=== PATIENT | male | born 1950 | race Hispanic/Latino ===

== ENCOUNTER 2021-08-15 14:27 | Inpatient (IN) | payer MEDICARE ==
[~2021-08-15] VITALS: Ht 165.1 cm; Wt 102.7 kg
[2021-08-15 14:57] VITALS: BP 109/61
[2021-08-15] MEDS ORDERED: NITROGLYCERIN 1GM OINT 1 INCH/1GM TD ONE (15:00)
[2021-08-15 15:05] LABS: BASOPHILS % (AUTO) 1.1 % (0.0-5.0); HEMATOCRIT 44.5 % (42-54); LYMPHOCYTES % (AUTO) 22.6 % (21.0-51.0); MEAN CORPUSCULAR HEMOGLOBIN 30.5 pg (27.0-33.0); MEAN CORPUSCULAR HGB CONC 34.4 g/dL (32.0-36.0); MEAN CORPUSCULAR VOLUME 88.8 fL (79-99); MONOCYTES % (AUTO) 5.3 % (3.0-13.0); NEUTROPHILS % (AUTO) 68.6 % (40.0-77.0); PLATELET COUNT (AUTO) 150 K/uL (130-400); RED BLOOD CELL COUNT(AUTO) 5.01 MIL/uL (4.50-6.20); RED CELL DISTRIBUTION WIDTH 13.4 % (11.0-15.5); WHITE BLOOD COUNT (AUTO) 8.5 K/uL (4.8-10.8)
[2021-08-15 15:17] LABS: INR 1.03 (0.85-1.15); POTASSIUM 3.9 mmol/L (3.5-5.1); PROTHROMBIN TIME 11.2 SEC (9.6-11.6)
[2021-08-15 15:18] LABS: PARTIAL THROMBOPLASTIN TIME 25.5 SEC (26.3-35.5)
[2021-08-15 15:23] LABS: ALBUMIN 3.5 g/dL (3.5-5.0); MAGNESIUM 1.8 mg/dL (1.80-2.40)
[2021-08-15 15:26] LABS: B-TYPE NATRIURETIC PEPTIDE 58 pg/mL (0-100)
[2021-08-15] MEDS ORDERED: AMINOCAPROIC ACID 5,000MG VIAL IV ONE (15:46)
[2021-08-15] MEDS ORDERED: MANNITOL 25% 50ML VIAL IV ONE (15:46)
[2021-08-15] MEDS ORDERED: ALBUMIN (HUMAN) 25% 50 ML IV ONE (15:46)
[2021-08-15] MEDS ORDERED: HEPARIN 10,000 UNIT/10ML (1,000 UNIT/ML) VIAL IV ONE (15:46)
[2021-08-15] MEDS ORDERED: SODIUM BICARB 8.4% 50ML SYRINGE IVP ONE (15:46)
[2021-08-15] MEDS ORDERED: CACL 1GM SYG IVP ONE (15:46)
[2021-08-15] MEDS ORDERED: NOREPINEPHRINE BITARTRATE 1 MG/1 ML ML IV ONE (15:46)
[2021-08-15 16:14] VITALS: BP 105/65
[2021-08-15] MEDS ORDERED: POTASSIUM CHLORIDE 20MEQ/100ML 100 ML IV PRN ×2 (16:30)
[2021-08-15] MEDS ORDERED: GLUCAGON 1MG KIT 1 MG ML IM PRN (16:30)
[2021-08-15] MEDS ORDERED: LIDOCAINE HCL-MPF 1% 2ML VIAL IV PRN ×2 (16:30)
[2021-08-15] MEDS ORDERED: DEXTROSE 50%-WATER 50 ML DISP.SYRIN IV PRN (16:30)
[2021-08-15] MEDS ORDERED: MAGNESIUM 2GM PREMIX 50ML 50 ML IV PRN (16:30)
[2021-08-15] MEDS ORDERED: POTASSIUM CHLORIDE 10% ELIXIR 20 MEQ/15 ML UDCUP PO PRN (16:30)
[2021-08-15] MEDS ORDERED: ONDANSETRON 4MG INJ IVP PRN (16:30)
[2021-08-15] MEDS ORDERED: ACETAMINOPHEN 325 MG/10.15ML UDCUP PO PRN (16:30)
[2021-08-15 16:55] LABS: HEMOGLOBIN A1C 11.7 % (4.0-6.0)
[2021-08-15] MEDS: NITROGLYCERIN 1GM OINT 1 INCH/1GM TD SCH (17:00)
[2021-08-15] MEDS ORDERED: MORPHINE 2 MG SYG IVP PRN (17:00)
[2021-08-15 17:05] LABS: THYROID STIMULATING HORMONE 2.69 uIU/mL (0.36-3.74)
[2021-08-15] MEDS: PANTOPRAZOLE 40 MG/VIAL IVP SCH (17:10)
[2021-08-15] MEDS: 0.9%NACL 1000ML 1,000 ML IV SCH (17:10)
[2021-08-15] MEDS ORDERED: ACETAMINOPHEN 325 MG TAB PO PRN (17:30)
[2021-08-15 17:40] VITALS: BP 115/65
[2021-08-15] MEDS: INSULIN HUMULIN R 100 UNIT/ML 3ML SQ SCH ×2 (18:00→23:44)
[2021-08-15 18:50] VITALS: BP 122/81
[2021-08-15] MEDS ORDERED: KETOROLAC 15MG/ML VIAL (15MG/ML) ONE (19:57)
[2021-08-15 20:00] VITALS: BP 115/70
[2021-08-15] MEDS ORDERED: TRAMADOL HCL 50 MG TABLET PO PRN (20:00)
[2021-08-15] MEDS ORDERED: KETOROLAC 15MG/ML VIAL (15MG/ML) IV SCH (20:00)
[2021-08-15] MEDS: ENOXAPARIN SODIUM 100 MG/1 ML SQ SCH (20:08)
[2021-08-15] MEDS: ATORVASTATIN 40 MG TABLET PO SCH (20:08)
[2021-08-15] MEDS ORDERED: SIMV-46 PO (20:57)
[2021-08-15] MEDS ORDERED: DAPA1TAB3 PO (20:57)
[2021-08-15] MEDS ORDERED: METO-391 PO (20:57)
[2021-08-15] MEDS ORDERED: LEVO150T11 PO (20:57)
[2021-08-15 23:59] VITALS: BP 102/56
[2021-08-16] VITALS (9 sets, daily range): BP systolic 101–135; BP diastolic 61–78
[2021-08-16] MEDS: NITROGLYCERIN 1GM OINT 1 INCH/1GM TD SCH ×4 (01:06→20:48)
[2021-08-16 02:38] LABS: HEMATOCRIT 41.6 % (42-54); MEAN CORPUSCULAR HEMOGLOBIN 30.1 pg (27.0-33.0); MEAN CORPUSCULAR HGB CONC 33.7 g/dL (32.0-36.0); MEAN CORPUSCULAR VOLUME 89.5 fL (79-99); RED BLOOD CELL COUNT(AUTO) 4.65 MIL/uL (4.50-6.20); RED CELL DISTRIBUTION WIDTH 13.4 % (11.0-15.5); WHITE BLOOD COUNT (AUTO) 9.7 K/uL (4.8-10.8)
[2021-08-16 02:57] LABS: POTASSIUM 4.2 mmol/L (3.5-5.1)
[2021-08-16] MEDS ORDERED: ASPIRIN 81MG CHEW TAB PO STA (03:40)
[2021-08-16] MEDS ORDERED: ASPIRIN 81MG CHEW TAB ONE (03:57)
[2021-08-16] MEDS: ASPIRIN 81 MG EC TAB PO SCH (04:01)
[2021-08-16] MEDS: 0.9%NACL 1000ML 1,000 ML IV SCH ×2 (04:05→17:16)
[2021-08-16] MEDS: MORPHINE 4 MG SYG IV PRN ×2 (05:18→20:47)
[2021-08-16] MEDS: INSULIN HUMULIN R 100 UNIT/ML 3ML SQ SCH ×3 (05:59→18:00)
[2021-08-16] MEDS: INSULIN GLARGINE 100 UNITS/ML 10 ML VIAL SQ SCH ×2 (08:00→18:15)
[2021-08-16] MEDS: PANTOPRAZOLE 40 MG/VIAL IVP SCH (09:23)
[2021-08-16] MEDS ORDERED: NITROGLYCERIN 0.4 MG SL TAB SL ONE (15:57)
[2021-08-16] MEDS ORDERED: TICAGRELOR 90 MG TABLET PO SCH ×2 (16:07→16:30)
[2021-08-16] MEDS ORDERED: MORPHINE 2 MG SYG ONE (17:08)
[2021-08-16] MEDS: ENOXAPARIN SODIUM 100 MG/1 ML SQ SCH ×2 (17:09→20:37)
[2021-08-16] MEDS ORDERED: MORPHINE 2 MG SYG IVP SCH (17:30)
[2021-08-16] MEDS ORDERED: NITROGLYCERIN 50MG/D5W 250ML 1 BOT IV PRN (18:00)
[2021-08-16] MEDS ORDERED: PHARMACY COMMUNICATION MISC SCH (18:00)
[2021-08-16] MEDS ORDERED: 0.9% NACL 500ML IV.SOLN 500 ML IV SCH (20:30)
[2021-08-16] MEDS: ATORVASTATIN 40 MG TABLET PO SCH (20:37)
[2021-08-16] MEDS: TICAGRELOR 90 MG TABLET PO SCH (20:37)
[2021-08-16] MEDS: METOPROLOL TARTRATE 25 MG TAB PO SCH (20:46)
[2021-08-16] MEDS ORDERED: ENOXAPARIN SODIUM 100 MG/1 ML SQ SCH (21:00)
[2021-08-17] VITALS (24 sets, daily range): BP systolic 113–144; BP diastolic 55–81
[2021-08-17 03:32] LABS: HEMATOCRIT 47.6 % (42-54); MEAN CORPUSCULAR HEMOGLOBIN 30.1 pg (27.0-33.0); MEAN CORPUSCULAR HGB CONC 32.8 g/dL (32.0-36.0); MEAN CORPUSCULAR VOLUME 91.7 fL (79-99); RED BLOOD CELL COUNT(AUTO) 5.19 MIL/uL (4.50-6.20); RED CELL DISTRIBUTION WIDTH 13.7 % (11.0-15.5); WHITE BLOOD COUNT (AUTO) 13.5 K/uL (4.8-10.8)
[2021-08-17] MEDS: 0.9%NACL 1000ML 1,000 ML IV SCH (04:00)
[2021-08-17 04:10] LABS: POTASSIUM 4.3 mmol/L (3.5-5.1)
[2021-08-17] MEDS ORDERED: 0.9%NACL 100ML 100 ML ONE (05:01)
[2021-08-17] MEDS: INSULIN HUMULIN R 100 UNIT/ML 3ML SQ SCH ×5 (05:14→21:00)
[2021-08-17] MEDS: NITROGLYCERIN 1GM OINT 1 INCH/1GM TD SCH ×2 (07:32→17:00)
[2021-08-17] MEDS: INSULIN GLARGINE 100 UNITS/ML 10 ML VIAL SQ SCH ×2 (07:32→17:58)
[2021-08-17] MEDS: TICAGRELOR 90 MG TABLET PO SCH (08:49)
[2021-08-17] MEDS: ASPIRIN 81 MG EC TAB PO SCH (08:49)
[2021-08-17] MEDS: PANTOPRAZOLE 40 MG/VIAL IVP SCH (08:50)
[2021-08-17] MEDS: ENOXAPARIN SODIUM 100 MG/1 ML SQ SCH (08:50)
[2021-08-17] MEDS: METOPROLOL TARTRATE 25 MG TAB PO SCH ×2 (08:50→21:35)
[2021-08-17] MEDS ORDERED: NITROGLYCERIN 2 MG VIAL IV ONE (11:36)
[2021-08-17] MEDS ORDERED: HEPARIN 10,000 UNIT/10ML (1,000 UNIT/ML) VIAL ONE (11:36)
[2021-08-17] MEDS ORDERED: IOHEXOL 350 MG/ML 100ML INFUS..BTL IV ONE (11:36)
[2021-08-17] MEDS ORDERED: FENTANYL CITRATE PF 50 MCG/1 ML 2ML VIAL ONE (11:37)
[2021-08-17] MEDS ORDERED: MIDAZOLAM HCL 1 MG/ML 2ML VIAL ONE (11:37)
[2021-08-17] MEDS ORDERED: LIDOCAINE HCL 400MG/20ML VIAL ONE (11:37)
[2021-08-17] MEDS ORDERED: 0.9%NACL 1000ML 1,000 ML IV SCH (12:30)
[2021-08-17] MEDS ORDERED: ENOXAPARIN SODIUM 100 MG/1 ML SQ ONE (15:30)
[2021-08-17] MEDS: ATORVASTATIN 40 MG TABLET PO SCH (21:35)
[2021-08-18] VITALS (17 sets, daily range): BP systolic 110–138; BP diastolic 62–83
[2021-08-18] MEDS: INSULIN HUMULIN R 100 UNIT/ML 3ML SQ SCH ×4 (06:19→20:07)
[2021-08-18] MEDS: METOPROLOL TARTRATE 25 MG TAB PO SCH ×2 (08:34→20:06)
[2021-08-18] MEDS: ASPIRIN 81 MG EC TAB PO SCH (08:34)
[2021-08-18] MEDS: PANTOPRAZOLE 40 MG/VIAL IVP SCH (08:35)
[2021-08-18] MEDS: ENOXAPARIN SODIUM 100 MG/1 ML SQ SCH ×3 (08:36→20:07)
[2021-08-18] MEDS: INSULIN GLARGINE 100 UNITS/ML 10 ML VIAL SQ SCH ×2 (08:39→17:47)
[2021-08-18] MEDS: ATORVASTATIN 40 MG TABLET PO SCH (20:06)
[2021-08-19] VITALS (16 sets, daily range): BP systolic 104–135; BP diastolic 62–86
[2021-08-19] MEDS: INSULIN HUMULIN R 100 UNIT/ML 3ML SQ SCH ×4 (06:13→20:27)
[2021-08-19] MEDS: PANTOPRAZOLE 40 MG/VIAL IVP SCH (07:45)
[2021-08-19] MEDS: ASPIRIN 81 MG EC TAB PO SCH (07:45)
[2021-08-19] MEDS: INSULIN GLARGINE 100 UNITS/ML 10 ML VIAL SQ SCH ×2 (07:45→16:08)
[2021-08-19] MEDS: METOPROLOL TARTRATE 25 MG TAB PO SCH ×2 (07:46→19:57)
[2021-08-19] MEDS: ENOXAPARIN SODIUM 100 MG/1 ML SQ SCH ×2 (07:46→19:57)
[2021-08-19] MEDS ORDERED: ACETAMINOPHEN 325 MG TAB PO PRN (08:00)
[2021-08-19 09:02] LABS: HEMATOCRIT 42.4 % (42-54); MEAN CORPUSCULAR HGB CONC 32.8 g/dL (32.0-36.0); MEAN CORPUSCULAR VOLUME 91.4 fL (79-99); RED BLOOD CELL COUNT(AUTO) 4.64 MIL/uL (4.50-6.20); RED CELL DISTRIBUTION WIDTH 14.2 % (11.0-15.5); WHITE BLOOD COUNT (AUTO) 9.8 K/uL (4.8-10.8)
[2021-08-19 09:18] LABS: ALBUMIN 2.5 g/dL (3.5-5.0); BILIRUBIN,TOTAL 1.5 mg/dL (0.2-1.0); CREATININE 0.9 mg/dL (0.5-1.5); MAGNESIUM 1.9 mg/dL (1.80-2.40); TOTAL PROTEIN, SERUM 6.4 g/dL (6.0-8.3)
[2021-08-19 09:20] LABS: POTASSIUM 2.9 mmol/L (3.5-5.1)
[2021-08-19] MEDS: KCL 20 MEQ ERTAB PO PRN ×5 (09:45→19:57)
[2021-08-19] MEDS ORDERED: ISOSORBIDE MONO 30MG SR TAB PO SCH (19:00)
[2021-08-19] MEDS: ATORVASTATIN 40 MG TABLET PO SCH (19:56)
[2021-08-20 03:52] LABS: CREATININE 0.8 mg/dL (0.5-1.5); MAGNESIUM 1.9 mg/dL (1.80-2.40); POTASSIUM 3.2 mmol/L (3.5-5.1)
[2021-08-20 04:25] LABS: ABG BASE EXCESS -2.5 mmol/L (-2.0-3.0); ABG HCO3 20.6 mmol/L (21.0-28.0); ABG OXYGEN SATURATION 94.9 % (95.0-99.0); ABG PCO2 31 mmHg (35-48)
[2021-08-20 04:29] VITALS: BP 102/61
[2021-08-20] MEDS: KCL 20 MEQ ERTAB PO PRN ×2 (05:26→09:10)
[2021-08-20] MEDS: INSULIN HUMULIN R 100 UNIT/ML 3ML SQ SCH ×4 (06:31→20:17)
[2021-08-20 07:00] VITALS: BP 127/61
[2021-08-20 07:37] LABS: ABG BASE EXCESS -3.1 mmol/L (-2.0-3.0); ABG HCO3 20.3 mmol/L (21.0-28.0); ABG OXYGEN SATURATION 95.1 % (95.0-99.0); ABG PCO2 32 mmHg (35-48)
[2021-08-20 08:00] VITALS: BP 122/65
[2021-08-20] MEDS: INSULIN GLARGINE 100 UNITS/ML 10 ML VIAL SQ SCH ×2 (08:21→16:47)
[2021-08-20] MEDS: ASPIRIN 81 MG EC TAB PO SCH (09:17)
[2021-08-20] MEDS: ISOSORBIDE MONO 30MG SR TAB PO SCH (09:17)
[2021-08-20] MEDS: METOPROLOL TARTRATE 25 MG TAB PO SCH ×2 (09:17→20:12)
[2021-08-20] MEDS: PANTOPRAZOLE 40 MG/VIAL IVP SCH (09:17)
[2021-08-20] MEDS: ENOXAPARIN SODIUM 100 MG/1 ML SQ SCH ×2 (09:17→20:12)
[2021-08-20 11:39] VITALS: BP 99/65
[2021-08-20 16:00] VITALS: BP 111/65
[2021-08-20 20:00] VITALS: BP 127/75
[2021-08-20] MEDS: ATORVASTATIN 40 MG TABLET PO SCH (20:12)
[2021-08-21 00:01] VITALS: BP 106/59
[2021-08-21 04:00] VITALS: BP 108/63
[2021-08-21 05:33] LABS: HEMATOCRIT 40.7 % (42-54); MEAN CORPUSCULAR HEMOGLOBIN 29.7 pg (27.0-33.0); MEAN CORPUSCULAR HGB CONC 32.7 g/dL (32.0-36.0); MEAN CORPUSCULAR VOLUME 90.8 fL (79-99); RED BLOOD CELL COUNT(AUTO) 4.48 MIL/uL (4.50-6.20); RED CELL DISTRIBUTION WIDTH 13.9 % (11.0-15.5); WHITE BLOOD COUNT (AUTO) 6.1 K/uL (4.8-10.8)
[2021-08-21 05:43] LABS: CREATININE 0.8 mg/dL (0.5-1.5); POTASSIUM 3.5 mmol/L (3.5-5.1)
[2021-08-21 05:45] LABS: INR 1.04 (0.85-1.15); PROTHROMBIN TIME 11.3 SEC (9.6-11.6)
[2021-08-21 05:46] LABS: PARTIAL THROMBOPLASTIN TIME 36.3 SEC (26.3-35.5)
[2021-08-21] MEDS: INSULIN HUMULIN R 100 UNIT/ML 3ML SQ SCH ×4 (07:00→20:18)
[2021-08-21] MEDS: METOPROLOL TARTRATE 25 MG TAB PO SCH ×2 (07:14→20:18)
[2021-08-21] MEDS: ASPIRIN 81 MG EC TAB PO SCH (07:15)
[2021-08-21] MEDS: ISOSORBIDE MONO 30MG SR TAB PO SCH (07:15)
[2021-08-21] MEDS: ENOXAPARIN SODIUM 100 MG/1 ML SQ SCH ×2 (07:15→20:19)
[2021-08-21] MEDS: INSULIN GLARGINE 100 UNITS/ML 10 ML VIAL SQ SCH ×2 (07:16→16:15)
[2021-08-21 08:00] VITALS: BP 101/66
[2021-08-21 12:00] VITALS: BP 108/64
[2021-08-21 16:00] VITALS: BP 107/67
[2021-08-21 20:00] VITALS: BP 110/70
[2021-08-21] MEDS: ATORVASTATIN 40 MG TABLET PO SCH (20:17)
[2021-08-21] MEDS: KCL 20 MEQ ERTAB PO PRN ×2 (20:18→22:18)
[2021-08-22] VITALS: BP 103/62
[2021-08-22 04:00] VITALS: BP 106/66
[2021-08-22 05:08] LABS: HEMATOCRIT 38.7 % (42-54); MEAN CORPUSCULAR HEMOGLOBIN 29.8 pg (27.0-33.0); MEAN CORPUSCULAR HGB CONC 33.9 g/dL (32.0-36.0); MEAN CORPUSCULAR VOLUME 88.2 fL (79-99); RED BLOOD CELL COUNT(AUTO) 4.39 MIL/uL (4.50-6.20); RED CELL DISTRIBUTION WIDTH 13.7 % (11.0-15.5); WHITE BLOOD COUNT (AUTO) 6.5 K/uL (4.8-10.8)
[2021-08-22 05:23] LABS: CREATININE 0.9 mg/dL (0.5-1.5); POTASSIUM 3.4 mmol/L (3.5-5.1)
[2021-08-22] MEDS: KCL 20 MEQ ERTAB PO PRN ×2 (06:19→16:36)
[2021-08-22] MEDS: PANTOPRAZOLE 40 MG TAB DR PO SCH (06:19)
[2021-08-22] MEDS: INSULIN HUMULIN R 100 UNIT/ML 3ML SQ SCH ×4 (06:22→20:44)
[2021-08-22] MEDS: INSULIN GLARGINE 100 UNITS/ML 10 ML VIAL SQ SCH ×2 (07:03→16:04)
[2021-08-22] MEDS: ENOXAPARIN SODIUM 100 MG/1 ML SQ SCH (07:03)
[2021-08-22] MEDS: METOPROLOL TARTRATE 25 MG TAB PO SCH ×2 (07:03→19:34)
[2021-08-22] MEDS: ASPIRIN 81 MG EC TAB PO SCH (07:03)
[2021-08-22] MEDS: ISOSORBIDE MONO 30MG SR TAB PO SCH (07:03)
[2021-08-22 08:00] VITALS: BP 102/61
[2021-08-22 12:00] VITALS: BP 116/69
[2021-08-22 16:00] VITALS: BP 114/60
[2021-08-22] MEDS: ATORVASTATIN 40 MG TABLET PO SCH (19:34)
[2021-08-22 20:00] VITALS: BP 114/67
[2021-08-23] VITALS (33 sets, daily range): BP systolic 88–139; BP diastolic 35–76
[2021-08-23 01:50] LABS: APPEARANCE,URINE Clear (CLEAR); BILIRUBIN,URINE Small (NEGATIVE); COLOR,URINE Dark Yellow (YELLOW); GLUCOSE, URINE (UA) 500 mg/dL (NEGATIVE); KETONES,URINE Negative (NEGATIVE); LEUKOCYTE ESTERASE ,URINE Negative (NEGATIVE); NITRATE,URINE Negative (NEGATIVE); OCCULT BLOOD,URINE Negative (NEGATIVE); PROTEIN,URINE Trace mg/dL (NEGATIVE); UROBILINOGEN,URINE >=8.0 mg/dL (0.2-1.0)
[2021-08-23 02:09] LABS: BACTERIA,URINE None Seen /HPF (None Seen); MUCUS,URINE Rare LPF (None Seen); RBC,URINE None Seen /HPF (0-1); SQUAMOUS EPITHELIAL CELL,UR Few /HPF (0-2); WBC,URINE None Seen /HPF (0-1); YEAST,URINE BUDDING None Seen /HPF (None Seen)
[2021-08-23 04:21] LABS: BASOPHILS % (AUTO) 0.8 % (0.0-5.0); EOSINOPHILS % (AUTO) 3.1 % (0.0-8.0); HEMATOCRIT 38.3 % (42-54); LYMPHOCYTES % (AUTO) 23.1 % (21.0-51.0); MEAN CORPUSCULAR HEMOGLOBIN 30.1 pg (27.0-33.0); MEAN CORPUSCULAR HGB CONC 33.7 g/dL (32.0-36.0); MEAN CORPUSCULAR VOLUME 89.5 fL (79-99); MONOCYTES % (AUTO) 10.2 % (3.0-13.0); NEUTROPHILS % (AUTO) 62.3 % (40.0-77.0); PLATELET COUNT (AUTO) 158 K/uL (130-400); RED BLOOD CELL COUNT(AUTO) 4.28 MIL/uL (4.50-6.20); RED CELL DISTRIBUTION WIDTH 13.8 % (11.0-15.5); WHITE BLOOD COUNT (AUTO) 6.5 K/uL (4.8-10.8)
[2021-08-23 04:51] LABS: ALBUMIN 2.4 g/dL (3.5-5.0); BILIRUBIN,TOTAL 0.9 mg/dL (0.2-1.0); CREATININE 0.9 mg/dL (0.5-1.5); POTASSIUM 3.6 mmol/L (3.5-5.1); TOTAL PROTEIN, SERUM 6.1 g/dL (6.0-8.3)
[2021-08-23] MEDS: PANTOPRAZOLE 40 MG TAB DR PO SCH (05:43)
[2021-08-23] MEDS: INSULIN HUMULIN R 100 UNIT/ML 3ML SQ SCH ×2 (05:43→10:53)
[2021-08-23] MEDS ORDERED: PAPAVERINE HCL 30 MG/ML 2ML VIAL ONE (06:51)
[2021-08-23] MEDS ORDERED: CEFAZOLIN SODIUM 1 GM VIAL ONE (06:51)
[2021-08-23] MEDS: METOPROLOL TARTRATE 25 MG TAB PO SCH (06:57)
[2021-08-23] MEDS ORDERED: NOREPINEPHRINE BITARTRATE 8 MG in 0.9% NACL 250ML 250 ML IV PRN (07:00)
[2021-08-23] MEDS ORDERED: AMINOCAPROIC ACID 5,000MG VIAL 15,000 MG in 0.9% NACL 500ML IV.SOLN 420 ML IV PRN (07:00)
[2021-08-23] MEDS ORDERED: EPINEPHRINE PF 1MG AMP 10 MG in 0.9% NACL 250ML 240 ML IV PRN (07:00)
[2021-08-23] MEDS ORDERED: EPINEPHRINE 1 MG/ML 30ML VIAL IJ ONE (07:37)
[2021-08-23] MEDS ORDERED: NOREPINEPHRINE BITARTRATE 1 MG/1 ML ML IV ONE (07:45)
[2021-08-23] MEDS ORDERED: AMINOCAPROIC ACID 5,000MG VIAL ONE (07:45)
[2021-08-23] MEDS ORDERED: HEPARIN 10,000 UNIT/10ML (1,000 UNIT/ML) VIAL ONE (07:45)
[2021-08-23] MEDS ORDERED: EPINEPHRINE PF 1MG AMP ONE (07:45)
[2021-08-23] MEDS ORDERED: ESMOLOL HCL 10 MG/ML 10 ML VIAL ONE (07:45)
[2021-08-23] MEDS ORDERED: PROTAMINE SULFATE 10 MG/ML 25ML VIAL IV ONE (07:45)
[2021-08-23] MEDS ORDERED: PROPOFOL 10 MG/ML 20ML VIAL IV ONE (07:45)
[2021-08-23] MEDS ORDERED: FENTANYL CITRATE PF 50 MCG/1 ML 20ML VIAL IJ ONE (07:45)
[2021-08-23] MEDS ORDERED: LIDOCAINE PF 100MG/5ML (2%) SYRINGE 5ML ONE (07:45)
[2021-08-23] MEDS ORDERED: SODIUM BICARB 50MEQ 50ML VIAL 150 ML ONE (07:45)
[2021-08-23] MEDS ORDERED: KETAMINE 50MG/ML SYRINGE 50 MG/ML DISP.SYRIN IV ONE (07:46)
[2021-08-23] MEDS ORDERED: ROCURONIUM 10MG/1ML SYR 10 MG/ML ML ONE (07:46)
[2021-08-23] MEDS ORDERED: MIDAZOLAM HCL 1 MG/ML 2ML VIAL ONE (07:46)
[2021-08-23] MEDS ORDERED: VASOPRESSIN 20 UNITS/ML 1ML VIAL ONE (07:47)
[2021-08-23] MEDS ORDERED: CEFUROXIME SODIUM 1.5 GM VIAL ONE (07:51)
[2021-08-23] MEDS: INSULIN GLARGINE 100 UNITS/ML 10 ML VIAL SQ SCH (08:00)
[2021-08-23] MEDS ORDERED: DELNIDO FORMULA 2 BAG IV ONE (08:01)
[2021-08-23 08:52] LABS: ABG OXYGEN SATURATION 98.6 % (95.0-99.0); ABG PCO2 41 mmHg (35-48)
[2021-08-23] MEDS ORDERED: [UNRECOGNIZED DRUG - OTHER] IV ONE (08:52)
[2021-08-23] MEDS: ASPIRIN 81 MG EC TAB PO SCH (09:00)
[2021-08-23] MEDS: ISOSORBIDE MONO 30MG SR TAB PO SCH (09:00)
[2021-08-23 09:08] LABS: ABG BASE EXCESS -1.1 mmol/L (-2.0-3.0); ABG HCO3 22.5 mmol/L (21.0-28.0); ABG OXYGEN SATURATION 99.3 % (95.0-99.0); ABG PCO2 34 mmHg (35-48)
[2021-08-23 10:24] LABS: ABG BASE EXCESS -0.9 mmol/L (-2.0-3.0); ABG OXYGEN SATURATION 98.9 % (95.0-99.0); ABG PCO2 27 mmHg (35-48)
[2021-08-23 10:50] LABS: ABG BASE EXCESS -0.6 mmol/L (-2.0-3.0); ABG OXYGEN SATURATION 98.9 % (95.0-99.0); ABG PCO2 30 mmHg (35-48)
[2021-08-23 11:16] LABS: ABG BASE EXCESS -3.4 mmol/L (-2.0-3.0); ABG HCO3 20.5 mmol/L (21.0-28.0); ABG OXYGEN SATURATION 98.4 % (95.0-99.0); ABG PCO2 33 mmHg (35-48)
[2021-08-23] MEDS ORDERED: MORPHINE 4 MG SYG ONE (12:24)
[2021-08-23 12:36] LABS: HEMATOCRIT 34.9 % (42-54); MEAN CORPUSCULAR HGB CONC 33.5 g/dL (32.0-36.0); MEAN CORPUSCULAR VOLUME 89.5 fL (79-99); RED BLOOD CELL COUNT(AUTO) 3.9 MIL/uL (4.50-6.20); RED CELL DISTRIBUTION WIDTH 13.7 % (11.0-15.5); WHITE BLOOD COUNT (AUTO) 10.1 K/uL (4.8-10.8)
[2021-08-23 12:47] LABS: CREATININE 0.7 mg/dL (0.5-1.5); POTASSIUM 4.2 mmol/L (3.5-5.1)
[2021-08-23 12:50] LABS: MAGNESIUM 2.2 mg/dL (1.80-2.40)
[2021-08-23 12:52] LABS: INR 1.15 (0.85-1.15); PROTHROMBIN TIME 12.4 SEC (9.6-11.6)
[2021-08-23 12:54] LABS: PARTIAL THROMBOPLASTIN TIME 29.4 SEC (26.3-35.5)
[2021-08-23 12:59] LABS: ABG BASE EXCESS -0.9 mmol/L (-2.0-3.0); ABG HCO3 21.7 mmol/L (21.0-28.0); ABG OXYGEN SATURATION 96.2 % (95.0-99.0); ABG PCO2 30 mmHg (35-48)
[2021-08-23] MEDS ORDERED: ALBUMIN (HUMAN) 5% 500 ML IV ONE (13:30)
[2021-08-23] MEDS ORDERED: ACETAMINOPHEN 650 MG SUPPOSITORY RC PRN (14:00)
[2021-08-23] MEDS ORDERED: 0.9% NACL 500ML IV.SOLN 500 ML IV SCH (14:00)
[2021-08-23] MEDS ORDERED: 0.9%NACL 1000ML 1,000 ML IV SCH (14:00)
[2021-08-23] MEDS ORDERED: MAGNESIUM 2GM PREMIX IV PRN (14:00)
[2021-08-23] MEDS ORDERED: POTASSIUM PHOS 15 mMOL+NS250ML 250 ML IV PRN (14:00)
[2021-08-23] MEDS ORDERED: POTASSIUM CHLORIDE 20MEQ/10ML 10 MEQ in 0.9%NACL 50ML 50 ML IV PRN (14:00)
[2021-08-23] MEDS ORDERED: NITROGLYCERIN 50 MG/D5% WATER 250 ML IV PRN (14:00)
[2021-08-23] MEDS ORDERED: SODIUM BICARB 8.4% 50ML SYRINGE IV PRN (14:00)
[2021-08-23] MEDS ORDERED: 0.9%NACL 10ML VIAL IVP PRN (14:00)
[2021-08-23] MEDS ORDERED: CALCIUM GLUC 1GM 1 GM in 0.9%NACL 50ML 50 ML IV PRN (14:00)
[2021-08-23] MEDS ORDERED: ONDANSETRON 4MG INJ IVP PRN (14:00)
[2021-08-23] MEDS ORDERED: NICARDIPINE HCL 100 MG/NS 100ML IV SCH ×2 (14:00)
[2021-08-23] MEDS ORDERED: INSULIN REGULAR, HUMAN 3ML 100 UNIT in 0.9%NACL 100ML 99 ML IV SCH ×2 (14:00)
[2021-08-23] MEDS ORDERED: PROPOFOL 1000 MG/100 ML 100 ML IV PRN (14:00)
[2021-08-23] MEDS ORDERED: ACETAMINOPHEN 325 MG TAB PO PRN (14:00)
[2021-08-23] MEDS ORDERED: MORPHINE 4 MG SYG IVP PRN (14:00)
[2021-08-23] MEDS: 0.9%NACL 1000ML 1,000 ML IV SCH (14:07)
[2021-08-23 14:09] LABS: ABG BASE EXCESS -1.7 mmol/L (-2.0-3.0); ABG HCO3 22.2 mmol/L (21.0-28.0); ABG OXYGEN SATURATION 97.8 % (95.0-99.0); ABG PCO2 35 mmHg (35-48)
[2021-08-23 14:17] LABS: ABG OXYGEN SATURATION 78.2 % (95.0-99.0); BASE EXCESS,VENOUS BLOOD GAS -3.7 (-2.0-3.0); HCO3,VENOUS BLOOD GAS 20.6 (21.0-28.0); PCO2,VENOUS BLOOD GAS 35 (35-48); PH,VENOUS BLOOD GAS 7.392 (7.350-7.450)
[2021-08-23 14:55] LABS: ABG HCO3 20.9 mmol/L (21.0-28.0); ABG OXYGEN SATURATION 97.8 % (95.0-99.0); ABG PCO2 34 mmHg (35-48)
[2021-08-23] MEDS ORDERED: ALBUMIN (HUMAN) 5% 250 ML IV ONE (15:13)
[2021-08-23] MEDS: MORPHINE 2 MG SYG IVP PRN ×2 (15:23→18:30)
[2021-08-23 16:10] LABS: ABG BASE EXCESS -1.4 mmol/L (-2.0-3.0); ABG HCO3 23.7 mmol/L (21.0-28.0); ABG OXYGEN SATURATION 96.9 % (95.0-99.0); ABG PCO2 41 mmHg (35-48)
[2021-08-23] MEDS: HYDROCODONE/ACETAMINOPHEN 5/325 MG TAB PO PRN (22:34)
[2021-08-24] VITALS (28 sets, daily range): BP systolic 92–124; BP diastolic 49–70
[2021-08-24] MEDS: HYDROCODONE/ACETAMINOPHEN 5/325 MG TAB PO PRN ×5 (04:37→21:32)
[2021-08-24 04:49] LABS: HEMATOCRIT 32.3 % (42-54); MEAN CORPUSCULAR HEMOGLOBIN 29.8 pg (27.0-33.0); MEAN CORPUSCULAR HGB CONC 32.5 g/dL (32.0-36.0); MEAN CORPUSCULAR VOLUME 91.8 fL (79-99); RED BLOOD CELL COUNT(AUTO) 3.52 MIL/uL (4.50-6.20); RED CELL DISTRIBUTION WIDTH 13.9 % (11.0-15.5)
[2021-08-24 05:12] LABS: CREATININE 0.8 mg/dL (0.5-1.5); MAGNESIUM 2.1 mg/dL (1.80-2.40); PHOSPHORUS 3.7 mg/dL (2.5-4.9); POTASSIUM 3.9 mmol/L (3.5-5.1)
[2021-08-24] MEDS: POTASSIUM CHLORIDE 20MEQ/100ML 100 ML IV PRN (05:24)
[2021-08-24] MEDS: ASPIRIN 81 MG EC TAB PO SCH (10:11)
[2021-08-24] MEDS: 0.9%NACL 1000ML 1,000 ML IV SCH (14:00)
[2021-08-24] MEDS: ENOXAPARIN SODIUM 40 MG/0.4 ML SYRINGE SQ SCH (17:22)
[2021-08-24] MEDS: METOPROLOL TARTRATE 25 MG TAB PO SCH ×2 (17:22→20:43)
[2021-08-24] MEDS: MORPHINE 2 MG SYG IVP PRN (21:33)
[2021-08-25] VITALS (20 sets, daily range): BP systolic 98–133; BP diastolic 53–81
[2021-08-25 00:32] LABS: ABG BASE EXCESS 0.8 mmol/L (-2.0-3.0); ABG HCO3 25.1 mmol/L (21.0-28.0); ABG OXYGEN SATURATION 97.7 % (95.0-99.0); ABG PCO2 39 mmHg (35-48)
[2021-08-25] MEDS: HYDROCODONE/ACETAMINOPHEN 5/325 MG TAB PO PRN ×3 (05:20→18:08)
[2021-08-25 06:32] LABS: HEMATOCRIT 28.8 % (42-54); MEAN CORPUSCULAR HEMOGLOBIN 29.8 pg (27.0-33.0); MEAN CORPUSCULAR HGB CONC 32.6 g/dL (32.0-36.0); MEAN CORPUSCULAR VOLUME 91.4 fL (79-99); RED BLOOD CELL COUNT(AUTO) 3.15 MIL/uL (4.50-6.20); RED CELL DISTRIBUTION WIDTH 13.7 % (11.0-15.5); WHITE BLOOD COUNT (AUTO) 8.4 K/uL (4.8-10.8)
[2021-08-25 06:47] LABS: ALBUMIN 2.2 g/dL (3.5-5.0); BILIRUBIN,TOTAL 0.8 mg/dL (0.2-1.0); CREATININE 0.7 mg/dL (0.5-1.5); MAGNESIUM 1.8 mg/dL (1.80-2.40); PHOSPHORUS 2.6 mg/dL (2.5-4.9); POTASSIUM 4.5 mmol/L (3.5-5.1); TOTAL PROTEIN, SERUM 5.2 g/dL (6.0-8.3)
[2021-08-25] MEDS ORDERED: DEXTROSE 50%-WATER 50 ML DISP.SYRIN IV PRN (08:30)
[2021-08-25] MEDS ORDERED: GLUCAGON 1MG KIT 1 MG ML IM PRN (08:30)
[2021-08-25] MEDS: ENOXAPARIN SODIUM 40 MG/0.4 ML SYRINGE SQ SCH (09:00)
[2021-08-25] MEDS: ASPIRIN 81 MG EC TAB PO SCH (09:48)
[2021-08-25] MEDS: METOPROLOL TARTRATE 25 MG TAB PO SCH ×2 (09:48→21:53)
[2021-08-25] MEDS: INSULIN HUMULIN R 100 UNIT/ML 3ML SQ SCH ×3 (11:30→21:00)
[2021-08-25] MEDS: 0.9%NACL 1000ML 1,000 ML IV SCH (14:00)
[2021-08-25] MEDS: INSULIN GLARGINE 100 UNITS/ML 10 ML VIAL SQ SCH (21:54)
[2021-08-26] VITALS (9 sets, daily range): BP systolic 44–119; BP diastolic 58–68
[2021-08-26 03:32] LABS: HEMATOCRIT 31.5 % (42-54); MEAN CORPUSCULAR HEMOGLOBIN 29.7 pg (27.0-33.0); RED BLOOD CELL COUNT(AUTO) 3.5 MIL/uL (4.50-6.20); RED CELL DISTRIBUTION WIDTH 13.4 % (11.0-15.5); WHITE BLOOD COUNT (AUTO) 7.7 K/uL (4.8-10.8)
[2021-08-26 03:40] LABS: POTASSIUM 3.5 mmol/L (3.5-5.1)
[2021-08-26] MEDS: HYDROCODONE/ACETAMINOPHEN 5/325 MG TAB PO PRN ×2 (04:45→23:55)
[2021-08-26] MEDS: POTASSIUM CHLORIDE 20MEQ/100ML 100 ML IV PRN (05:47)
[2021-08-26] MEDS: INSULIN GLARGINE 100 UNITS/ML 10 ML VIAL SQ SCH ×2 (05:48→21:24)
[2021-08-26] MEDS: INSULIN HUMULIN R 100 UNIT/ML 3ML SQ SCH ×4 (05:49→21:24)
[2021-08-26] MEDS ORDERED: POTASSIUM CHLORIDE 20MEQ/100ML 100 ML IV PRN (07:00)
[2021-08-26] MEDS ORDERED: LIDOCAINE HCL-MPF 1% 2ML VIAL IV PRN (07:00)
[2021-08-26] MEDS: ASPIRIN 81 MG EC TAB PO SCH (08:45)
[2021-08-26] MEDS: METOPROLOL TARTRATE 25 MG TAB PO SCH ×2 (08:45→21:23)
[2021-08-26] MEDS: ENOXAPARIN SODIUM 40 MG/0.4 ML SYRINGE SQ SCH (08:45)
[2021-08-26] MEDS: POTASSIUM CHLORIDE 10% ELIXIR 20 MEQ/15 ML UDCUP PO PRN ×2 (08:53→11:14)
[2021-08-26] MEDS: FUROSEMIDE 20 MG TABLET PO SCH (11:13)
[2021-08-26] MEDS ORDERED: CLOPIDOGREL 75MG TAB PO SCH ×2 (11:30)
[2021-08-26] MEDS ORDERED: FUROSEMIDE 20 MG TABLET PO SCH (11:30)
[2021-08-26] MEDS: 0.9%NACL 1000ML 1,000 ML IV SCH (14:00)
[2021-08-26] MEDS: ATORVASTATIN 40 MG TABLET PO SCH (21:22)
[2021-08-27] VITALS (7 sets, daily range): BP systolic 84–117; BP diastolic 51–65
[2021-08-27 04:54] LABS: HEMATOCRIT 30.7 % (42-54); MEAN CORPUSCULAR HEMOGLOBIN 29.6 pg (27.0-33.0); MEAN CORPUSCULAR HGB CONC 32.9 g/dL (32.0-36.0); RED BLOOD CELL COUNT(AUTO) 3.41 MIL/uL (4.50-6.20); RED CELL DISTRIBUTION WIDTH 13.2 % (11.0-15.5); WHITE BLOOD COUNT (AUTO) 6.9 K/uL (4.8-10.8)
[2021-08-27 05:12] LABS: CREATININE 0.9 mg/dL (0.5-1.5); POTASSIUM 3.3 mmol/L (3.5-5.1)
[2021-08-27] MEDS: INSULIN HUMULIN R 100 UNIT/ML 3ML SQ SCH ×4 (06:31→20:31)
[2021-08-27] MEDS: FUROSEMIDE 20 MG TABLET PO SCH (08:47)
[2021-08-27] MEDS: ASPIRIN 81 MG EC TAB PO SCH (08:47)
[2021-08-27] MEDS: METOPROLOL TARTRATE 25 MG TAB PO SCH ×2 (08:47→20:30)
[2021-08-27] MEDS: KCL 20 MEQ ERTAB PO PRN ×3 (08:48→16:57)
[2021-08-27] MEDS: ENOXAPARIN SODIUM 40 MG/0.4 ML SYRINGE SQ SCH (08:48)
[2021-08-27] MEDS ORDERED: FURO20TA6 PO (08:52)
[2021-08-27] MEDS ORDERED: METO25TA6 PO (08:52)
[2021-08-27] MEDS ORDERED: ATOR40TA71 PO (08:52)
[2021-08-27] MEDS ORDERED: ASPI-1443 PO (08:52)
[2021-08-27] MEDS: INSULIN GLARGINE 100 UNITS/ML 10 ML VIAL SQ SCH ×2 (09:36→20:32)
[2021-08-27] MEDS ORDERED: CLOP75TA14 PO (11:54)
[2021-08-27] MEDS: PANTOPRAZOLE 40 MG TAB DR PO SCH (12:19)
[2021-08-27] MEDS: ATORVASTATIN 40 MG TABLET PO SCH (20:30)
[2021-08-28 04:00] VITALS: BP 92/53
[2021-08-28 04:29] LABS: CREATININE 0.9 mg/dL (0.5-1.5); POTASSIUM 3.8 mmol/L (3.5-5.1)
[2021-08-28] MEDS: INSULIN HUMULIN R 100 UNIT/ML 3ML SQ SCH ×2 (06:41→10:59)
[2021-08-28 07:46] VITALS: BP 98/62
[2021-08-28] MEDS: PANTOPRAZOLE 40 MG TAB DR PO SCH (09:00)
[2021-08-28] MEDS: ASPIRIN 81 MG EC TAB PO SCH (09:00)
[2021-08-28] MEDS: KCL 20 MEQ ERTAB PO PRN (09:00)
[2021-08-28] MEDS: INSULIN GLARGINE 100 UNITS/ML 10 ML VIAL SQ SCH (09:13)
[2021-08-28 11:57] VITALS: BP 111/60
[2021-08-28] MEDS: METOPROLOL TARTRATE 25 MG TAB PO SCH (13:05)
== END 2021-08-28 16:07 | disposition home or self-care (01) | DRG 233 ==
LOC: EDH 14:27 → OBSVTOIN 16:22 → EDHIP 16:22 → 4CH 18:13 → 2DH 08-16 19:52 → 4BH 08-21 06:45 → 2CH 08-23 10:20 → 2DH 08-24 11:21 → 4DH 08-26 03:41
PROVIDERS: ADMIT Internal Medicine Critical Care Medicine; ATTEND Internal Medicine Critical Care Medicine
PROC: B2111ZZ Fluoroscopy of Multiple Coronary Arteries using Low Osmolar Contrast (ICD-10-PCS; 2021-08-17)
PROC: B41F1ZZ Fluoroscopy of Right Lower Extremity Arteries using Low Osmolar Contrast (ICD-10-PCS; 2021-08-17)
PROC: 06BQ4ZZ Excision of Left Saphenous Vein, Percutaneous Endoscopic Approach (ICD-10-PCS; 2021-08-23)
PROC: 5A1221Z Performance of Cardiac Output, Continuous (ICD-10-PCS; 2021-08-23)
PROC: 02100Z9 Bypass Coronary Artery, One Artery from Left Internal Mammary, Open Approach (ICD-10-PCS; principal; 2021-08-23 08:26)
PROC: 021009W Bypass Coronary Artery, One Artery from Aorta with Autologous Venous Tissue, Open Approach (ICD-10-PCS; 2021-08-23 08:26)
DX: I21.4 Non-ST elevation (NSTEMI) myocardial infarction (principal); I50.43 Acute on chronic combined systolic (congestive) and diastolic (congestive) heart failure; I47.1 Supraventricular tachycardia; E78.00 Pure hypercholesterolemia, unspecified; E78.5 Hyperlipidemia, unspecified; Z68.37 Body mass index [BMI] 37.0-37.9, adult; E66.9 Obesity, unspecified; E03.9 Hypothyroidism, unspecified; E78.1 Pure hyperglyceridemia; I25.5 Ischemic cardiomyopathy; Z20.822 Contact with and (suspected) exposure to COVID-19; E11.9 Type 2 diabetes mellitus without complications; I07.1 Rheumatic tricuspid insufficiency; E87.8 Other disorders of electrolyte and fluid balance, not elsewhere classified; Z87.01 Personal history of pneumonia (recurrent); Z95.5 Presence of coronary angioplasty implant and graft; I25.2 Old myocardial infarction; Z79.4 Long term (current) use of insulin; Z79.899 Other long term (current) drug therapy; Z83.3 Family history of diabetes mellitus; Z82.49 Family history of ischemic heart disease and other diseases of the circulatory system; Z86.16 Personal history of COVID-19; I11.0 Hypertensive heart disease with heart failure
CPT/HCPCS: 36415; 36600; 71045; 80048; 80053; 80061; 81001; 82435; 82550; 82803; 82947; 82948; 83036; 83605; 83735; 83874; 83880; 84100; 84132; 84295; 84443; 84484; 85018; 85025; 85027; 85347; 85378; 85610; 85730; 86850; 86900; 86901; 86923; 87635; 93005; 93306; 93356; 93454; 93880; 94002; 94150; 94760; 97039; 99156; 99157; A7048; C1729; C1757; C1894; C9113; G0378; J0171; J0690; J0697; J1644; J1650; J1815; J1885; J2001; J2150; J2250; J2260; J2270; J2405; J2440; J2704; J2720; J3010; J3475; J3480; J3490; J7030; J7040; P9045; P9047; Q9967

== ENCOUNTER → 2022-03-18 | Outpatient (CLI) | payer MEDICARE, OTHER ==
[~2022-03-18] MED LIST: ASPI-1443 PO; ATOR40TA71 PO; CLOP75TA14 PO; DAPA1TAB3 PO; FURO20TA6 PO; LEVO150T11 PO; METO25TA6 PO; SIMV-46 PO
== END | disposition home or self-care (01) ==
LOC: SHCH 09:28
PROVIDERS: ATTEND Internal Medicine Cardiovascular Disease
DX: I08.3 Combined rheumatic disorders of mitral, aortic and tricuspid valves (principal); I77.810 Thoracic aortic ectasia; I25.10 Atherosclerotic heart disease of native coronary artery without angina pectoris; I11.9 Hypertensive heart disease without heart failure; E11.9 Type 2 diabetes mellitus without complications; E66.9 Obesity, unspecified
CPT/HCPCS: 93306

== ENCOUNTER → 2023-08-01 | Outpatient (CLI) | payer OTHER ==
[~2023-08-01] MED LIST changes: +CLOP-31 PO; -CLOP75TA14 PO
== END | disposition home or self-care (01) ==
LOC: RAH 13:32
PROVIDERS: ATTEND Chiropractor
DX: I08.0 Rheumatic disorders of both mitral and aortic valves (principal); I25.9 Chronic ischemic heart disease, unspecified; E11.9 Type 2 diabetes mellitus without complications; E66.9 Obesity, unspecified; E78.5 Hyperlipidemia, unspecified; I10 Essential (primary) hypertension
CPT/HCPCS: 93306

== ENCOUNTER → 2024-04-08 | Outpatient (CLI) | payer OTHER | END | disposition home or self-care (01) | LOC: SHCH 11:31 | PROVIDERS: ATTEND Internal Medicine Cardiovascular Disease | DX: I08.0 Rheumatic disorders of both mitral and aortic valves (principal); I25.10 Atherosclerotic heart disease of native coronary artery without angina pectoris; I10 Essential (primary) hypertension; E11.9 Type 2 diabetes mellitus without complications; E78.5 Hyperlipidemia, unspecified | CPT/HCPCS: 93306 ==